=== PATIENT | male | born 1985 | race Caucasian/White ===

== ENCOUNTER 2020-10-30 20:14 | Emergency (ER) | payer OTHER ==
[~2020-10-30] VITALS: Ht 177.8 cm; Wt 90.7 kg
[2020-10-30] MEDS ORDERED: NOHOMEMEDICATIONS (20:51)
[2020-10-30 21:24] LABS: ABSOLUTE NEUTROPHILS 4.2 thou/uL (1.4-8.2); BASOPHILS 0.9 % (0.0-2.0); EOSINOPHILS 1.5 % (0.0-3.0); HEMATOCRIT 39.8 % (42.0-52.0); HEMOGLOBIN 13.6 gm/dL (14.0-18.0); LYMPHOCYTES 28.7 % (24.0-44.0); MCH 29.8 pg (26.0-34.0); MCHC 34.2 g/dL (28.0-37.0); MONOCYTES 7.8 % (1.0-8.0); PLATELET COUNT 204 thou/uL (150-400); POLYS 61.1 % (36.0-66.0); RBC 4.57 mil/uL (4.50-6.00); WBC 6.8 thou/uL (4.0-11.0)
[2020-10-30 22:04] LABS: CREATININE 1.1 mg/dL (0.7-1.3); POTASSIUM 4.1 mmol/L (3.5-5.1)
[2020-10-30] MEDS ORDERED: ATIVAN0.5 M1 PO (22:18)
[2020-10-30 22:58] VITALS: BP 128/92
--- NOTE | 2020-10-31 10:22 | EKG ---
[place] [address] [facility] [email or web address] [address] ELECTROCARDIOGRAM REPORT Name: ERIN ZEE Room #: DEP Raghavendra#: [id number] Admission: 10/30/20 Attend Phys: Discharge: 10/30/20 Date of : [birth year] Report #: [id number] [facility] ED Test Date: 2020-10-30 Test Time: 20:23:06 Pat Name: ERIN ZEE Department: Room: Gender: M [employer] [place]: DILEEP : 1985 Requested By: Dalton Callahan Order Number: [id number] MD: Jl Yoon Measurements Intervals [place] Rate: 96 P: 62 [place]: 142 QRS: 33 QRSD: 88 T: 7 QT: 443 QTc: 560 Interpretive Statements Sinus rhythm Borderline T abnormalities, anterior leads Prolonged QT interval No previous ECG available for comparison Electronically Signed On 10-31-2020 10:22:14 CDT by Jl Yoon [email or web address] <ELECTRONICALLY SIGNED> By: Jl Yoon MD, [facility] 10/31/20 1022 22 22 Jl Yoon MD, FACC /EPI
== END 2020-10-30 23:20 | disposition home or self-care (01) ==
LOC: ER 20:14
PROVIDERS: Emergency Medicine
DX: F10.139 Alcohol abuse with withdrawal, unspecified (principal); R07.9 Chest pain, unspecified; Y90.0 Blood alcohol level of less than 20 mg/100 ml